=== PATIENT | female | born 1960 | race Caucasian/White ===

== ENCOUNTER 2016-09-21 12:27 | Inpatient (IN) | payer OTHER ==
[2016-09-21] MEDS ORDERED: ONDANSETRON 4 MG/2 ML VIAL IVP ONE (12:47)
--- NOTE | 2016-09-21 12:47 | CPEKG ---
Heart Rate: 56 RR Interval: 1071 P-R Interval: 148 QRSD Interval: 104 QT Interval: 444 QTC Interval: 429 P [place]: 45 QRS [place]: 16 T Wave [place]: 23 EKG Severity - NORMAL ECG - EKG Impression: SINUS RHYTHM Electronically Signed By: Apollo Mann 22-Sep-2016 14:33:58
[2016-09-21] MEDS ORDERED: NS 1,000 ML IV ONE (13:11)
[2016-09-21] MEDS ORDERED: ASPIRIN 81 MG CHEWABLE TAB PO ONE (13:11)
[2016-09-21 13:28] LABS: % IMMATURE GRANULYOCYTES 0.2 % (0.0-1.1); ABSOLUTE IMMATURE GRANULOCYTES 0.01 10^3/uL (0.00-0.10); ADD DIFF? NO; ADD MORPH? NO; ADD SCAN? NO; ATYPICAL LYMPHOCYTE FLAG 10 (0-99); FRAGMENT RBC FLAG 0 (0-99); HEMATOCRIT 39.1 % (38.0-47.0); HEMOGLOBIN 13.3 g/dL (12.6-16.3); LEFT SHIFT FLG 0 (0-99); LIPEMIA HEMOLYSIS FLAG 90 (0-99); MEAN CELL HEMOGLOBIN 31.4 pg (27.9-34.1); MEAN CELL VOLUME 92.2 fL (81.5-99.8); MEAN PLATELET VOLUME 9.4 fL (8.7-11.7); PLATELET CLUMPS FLAG 0 (0-99); PLATELET COUNT 284 10^3/uL (150-400); RED BLOOD CELL COUNT 4.24 10^6/uL (4.18-5.33); RED CELL DISTRIBUTION WIDTH 12.5 % (11.5-15.2)
--- NOTE | 2016-09-21 13:28 | EDPHY ---
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 Patient is on carvedilol which she has been on for over a year and has not change the dosage and has been taking. She states over the past few days her heart rate has been in the 40s on her feet bit and she has been feeling fatigued, occasionally dizzy with near syncope and yesterday and today a feeling of chest pressure, nausea and difficulty breathing. The symptoms are not necessarily exertional. She was seen at [facility] yesterday where her heart rate was in the 50s and they told her to go home and lie down and get some rest but then she noticed her heart rate was in the 40s this morning so she came in. Patient's cardiac risk factors are notable for her hypertension, elevated cholesterol, she has no diabetes, her sister of a heart attack in her 50s, patient quit smoking 1 year ago. REVIEW OF SYSTEMS: As in HPI, and all other systems reviewed and are negative Source: Patient - Personal History Current Tetanus Diphtheria and Acellular Pertussis (TDAP): Yes - Medical/Surgical History Other PMH: HR ablassion -(AVRN)/ GB/HTN - Family History Significant Family History: Heart disease - Social History Smoking Status: Never smoked - Physical Exam Exam: General Appearance: Alert, anxious, vomiting. Eyes: Pupils equal and round no pallor or injection. ENT, Mouth: Mucous membranes moist. Respiratory: Normal, effort, lungs are clear to auscultation. No wheezes, rales or rhonchi. Cardiovascular: Regular rate and rhythm. S1, S2 Gastrointestinal: Abdomen is soft and nontender, no masses, bowel sounds normal. Back: No CVA tenderness, no bony tenderness Neurological: Awake, alert and oriented x 3, no pronator drift, normal gait, no pronator drift Skin: Warm and dry, no rashes. Musculoskeletal: Neck is supple nontender. No deformities. Extremitie:s full range of motion, no edema Psychiatric: Patient has normal affect, there is no agitation. Constitutional: Initial Vital Signs Temperature (C) 36.6 C 09/21/16 12:33 Heart Rate 66 09/21/16 12:33 Respiratory Rate 18 09/21/16 12:33 Blood Pressure 157/86 H 09/21/16 12:33 O2 Sat (%) 99 09/21/16 12:33 O2 Delivery Mode Room Air Allergies/Adverse Reactions: No Known Allergies Allergy (Unverified 09/21/16 12:31) Home Medications: Medication Instructions Recorded Carvedilol 09/21/16 Celabrex 09/21/16 traZODone 09/21/16 Medical Decision Making - Diagnostics Imaging Results: Imaging Impressions Chest X-Ray 09/21/16 13:11 Impression: No acute findings in the chest. ED Course/Re-evaluation: 55-year-old woman with multiple cardiac risk factors presents complaining of bradycardia, dizziness, nausea and intermittent chest pressure and shortness of breath. ECG shows normal sinus rhythm at a rate of 56 with normal axis, normal intervals and no ST segment abnormalities and no evidence of acute ischemia. There is no old EKG available for comparison. Patient was noted to drop into the 40s on the ekg monitor tech. She was given IV Zofran and fluids with some improvement in her symptoms however when she sat up she would feel dizzy again. Chest x-ray showed nothing acute. First troponin was negative. On re- evaluation her nausea return in she was stating that she felt very anxious and became tearful. She was therefore given a dose of IV Haldol for her nausea and anxiety. Although there is no evidence of acute myocardial infarction I was concerned about of myocardia ischemia with the patient's risk factors, bradycardia and symptoms. She will therefore be admitted for further evaluation treatment. I discussed the case with hospitalist tongue presser, Dr. Ly who accepts the patient to [facility]. - Data Points Laboratory Results: Laboratory Results 09/21/16 13:15 09/21/16 13:15 09/21/16 09/21/16 09/21/16 13:20 13:15 13:15 WBC 5.94 10^3/uL 10^3/uL (3.80-9.50) RBC 4.24 10^6/uL 10^6/uL (4.18-5.33) Hgb 13.3 g/dL g/dL (12.6-16.3) Hct 39.1 % % (38.0-47.0) MCV 92.2 fL fL (81.5-99.8) MCH 31.4 pg pg (27.9-34.1) MCHC 34.0 g/dL g/dL (32.4-36.7) RDW 12.5 % % (11.5-15.2) Plt Count 284 10^3/uL 10^3/uL (150-400) MPV 9.4 fL fL (8.7-11.7) Neut % (Auto) 65.3 % % (39.3-74.2) Lymph % (Auto) 24.4 % % (15.0-45.0) Meigs % (Auto) 7.9 % % (4.5-13.0) Eos % (Auto) 1.7 % % (0.6-7.6) Baso % (Auto) 0.5 % % (0.3-1.7) Nucleat RBC Rel Count 0.0 % % (0.0-0.2) Absolute Neuts (auto) 3.88 10^3/uL 10^3/uL (1.70-6.50) Absolute Lymphs (auto) 1.45 10^3/uL 10^3/uL (1.00-3.00) Absolute Monos (auto) 0.47 10^3/uL 10^3/uL (0.30-0.80) Absolute Eos (auto) 0.10 10^3/uL 10^3/uL (0.03-0.40) Absolute Basos (auto) 0.03 10^3/uL 10^3/uL (0.02-0.10) Absolute Nucleated RBC 0.00 10^3/uL 10^3/uL (0-0.01) Immature Gran % 0.2 % % (0.0-1.1) Immature Gran # 0.01 10^3/uL 10^3/uL (0.00-0.10) Sodium 135 mEq/L mEq/L (134-144) Potassium 4.5 mEq/L mEq/L (3.5-5.2) Chloride 101 mEq/L mEq/L (97-110) Carbon Dioxide 23 mEq/l mEq/l (22-31) Anion Gap 11 mEq/L mEq/L (8-16) BUN 15 mg/dL mg/dL (7-23) Creatinine 0.6 mg/dL mg/dL (0.6-1.0) Estimated GFR > 60 Glucose 86 mg/dL mg/dL (70-100) Calcium 9.5 mg/dL mg/dL (8.5-10.4) Magnesium 1.6 mg/dL mg/dL (1.6-2.3) Troponin I < 0.012 ng/mL ng/mL (0-0.034) Urine Opiates Screen NEGATIVE (NEGATIVE) Urine Barbiturates NEGATIVE (NEGATIVE) Ur Phencyclidine Scrn NEGATIVE (NEGATIVE) Ur Amphetamine Screen NEGATIVE (NEGATIVE) U Benzodiazepines Scrn NEGATIVE (NEGATIVE) Urine Cocaine Screen NEGATIVE (NEGATIVE) U Marijuana (THC) Screen NEGATIVE (NEGATIVE) Medications Given: Discontinued Medications Aspirin (Aspirin) 324 mg PO EDNOW ONE Stop: 09/21/16 13:12 Last Admin: 09/21/16 13:28 Dose: 324 mg Haloperidol Lactate (Haldol Injection) 1 mg IVP EDNOW ONE Stop: 09/21/16 15:22 Last Admin: 09/21/16 15:28 Dose: 1 mg Sodium Chloride (Ns) 1,000 mls @ 0 mls/hr IV ONCE ONE; Wide Open PRN Reason: Protocol Stop: 09/21/16 13:12 Last Admin: 09/21/16 13:29 Dose: 1,000 mls Ondansetron HCl (Zofran) 4 mg IVP EDNOW ONE Stop: 09/21/16 12:48 Last Admin: 09/21/16 13:00 Dose: 4 mg Departure - Departure Referrals: NONE *PRIMARY CARE P,. [Primary Care Provider] - As per Instructions
[2016-09-21 13:46] LABS: ANION GAP 11 mEq/L (8-16); CALCIUM 9.5 mg/dL (8.5-10.4); CARBON DIOXIDE 23 mEq/l (22-31); CHLORIDE 101 mEq/L (97-110); CREATININE 0.6 mg/dL (0.6-1.0); GLOMERULAR FILTRATION RATE > 60; GLUCOSE 86 mg/dL (70-100); MAGNESIUM 1.6 mg/dL (1.6-2.3); POTASSIUM 4.5 mEq/L (3.5-5.2); SODIUM 135 mEq/L (134-144)
[2016-09-21 13:59] LABS: TROPONIN I < 0.012 ng/mL (0-0.034)
[2016-09-21] MEDS ORDERED: HALOPERIDOL LACT 5 MG/ML INJ IVP ONE (15:21)
[2016-09-21] MEDS ORDERED: CALCIUM CARBONATE 500 MG TAB PO ONE (15:32)
[2016-09-21] MEDS ORDERED: CALCIUM CARBONATE 500 MG CHEWABLE TAB PO ONE ×3 (15:34→15:35)
[2016-09-21] MEDS ORDERED: ACETAMINOPHEN 325 MG TAB PO PRN (17:57)
[2016-09-21] MEDS ORDERED: ONDANSETRON DISINTEGRATING 4 MG TAB PO PRN (17:57)
[2016-09-21] MEDS ORDERED: MAG HYDROX/AL HYDROX/SIMETH 30 ML UDCUP PO PRN (18:03)
[2016-09-21] MEDS ORDERED: hydrALAZINE 25 MG TAB PO PRN (18:18)
[2016-09-21] MEDS: PROMETHAZINE HCL 25 MG/ML INJ IVP PRN (18:30)
[2016-09-21] MEDS: NS 1,000 ML IV SCH (18:30)
--- NOTE | 2016-09-21 19:09 | GHP ---
[f rep st] HISTORY AND PHYSICAL DATE OF ADMISSION: 09/21/2016 CHIEF COMPLAINT: Nausea, bradycardia. HISTORY OF PRESENT ILLNESS: The patient is a 55-year-old female with history of AVNRT, status post ablation and hypertension in the past, who presented to clinic with a low heart rate. She has been on Coreg since her ablation and has noticed over the past couple days that her Fitbit has shown a heart rate in the 40s. She has felt very fatigued over the last couple weeks with occasional dizziness. She has also had a mild headache intermittently over the last couple weeks. Today, she had chest heaviness in the left side of her chest with no associated radiation, numbness or diaphoresis. She had mild shortness of breath. Says she has had vomiting since yesterday (puking bile). She attributes this to a new diet that she has been eating which is taking out fats , meats. She was seen at [facility] yesterday, heart rate in the 50s and they told her to go home and lie down but she notes today heart rate was in the 40s, thus she returned to [facility]. She denies diarrhea. No fevers, chills or sweats. No cough. No lower extremity edema. No recent travel. No herbal supplements. Denies drugs, tobacco. Is an alcoholic. She says her last drink was a couple weeks ago. It was difficult to get a clear history from patient, as was tangential, likely secondary from Haldol and Benadryl she received over at [facility]. She says she walks 20,000 steps a day with her job and does not experience chest pain or shortness of breath with this usual activity. REVIEW OF SYSTEMS: I completed a 10-point review of systems, negative except as noted. PAST MEDICAL HISTORY: AVNRT, status post ablation in 2014. PAST SURGICAL HISTORY: Cholecystectomy. FAMILY HISTORY: Sister of heart failure. SOCIAL HISTORY: Lives in [place] alone. No illicits or tobacco. Prior heavy alcohol use. 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 Walks 20,000 steps a day. ALLERGIES: Celecoxib, trazodone, Coreg 6.25 mg b.i.d. ALLERGIES: No known drug allergies. PHYSICAL EXAM: VITAL SIGNS: Temperature 36.9, blood pressure 174/104, heart rate 50s to 60s, respirations 16, 98% on room air. GENERAL: Patient is lying in bed, somnolent but easily arousable to voice. HEENT: PERRLA, EOMI. Dry mucous membranes. CV: Regular rate and rhythm. No murmurs, gallops, rubs. No lower extremity edema. LUNGS: Clear to auscultation. ABDOMEN: Soft, nontender, nondistended. Positive bowel sounds. : No suprapubic tenderness. MUSCULOSKELETAL: 5/5 upper and lower extremity strength. NEURO: 2 through 12 intact. No focal deficits. Normal sensation to touch. PSYCH: Alert and oriented x3, but very slow to answer. Difficult to keep on point when asking questions. LABS: WBC is 5, hemoglobin 13, hematocrit 39, platelets 284. Sodium 135, potassium 4.5, chloride 101, carbon dioxide 23, BUN 15, creatinine 0.6, mag 1.6. Troponin less than 0.012. U-tox was negative. EKG, personally reviewed by me, for sinus rhythm, bradycardia, heart rate in the 50s. Less <1mm depression in V4-5 Chest x-ray, personally reviewed, granulomas. No effusion or opacity. ASSESSMENT AND PLAN: 1. Dizziness, fatigue: Suspect secondary to bradycardia. HR low as 40s per her Fitbit and at [facility]. Initial troponin. Min ST depression V4-6. Will monitor in the PCU on telemetry and repeat both of these. Hold Coreg. Check a TSH. Will hydrate with fluids. She is not on any other atrioventricular jennifer blocking drugs. 2. Accelerated hypertension: Blood pressure high today. May be a situation with excessive nausea and vomiting. Will monitor, p.r.n. hydralazine. Norvasc in morning 3. Atypical chest pain: chest pressure today, but difficult to get details during exam. Denies family history of CAD. Blood pressure elevated today that may have contributed. Cycle troponins and EKG. If negative, would be reasonable to stress as an outpatient when BP better controlled. Will check an A1c and lipids. 4. Nausea and vomiting: Unclear etiology. Could be an anginal equivalent versus a gastroenteritis. Question of patient drinking more than stated. Will hydrate and p.r.n. IV antiemetics. 5. Diet: Regular. 6. Deep venous thrombosis prophylaxis. Low risk, ambulatory. 7. Disposition: Patient warrants observation admission given acute chest pressure and bradycardia requiring telemetry and serial troponins. /[id number]/MODL MTDD
--- NOTE | 2016-09-21 19:16 | CPEKG ---
Heart Rate: 52 RR Interval: 1154 P-R Interval: 140 QRSD Interval: 110 QT Interval: 468 QTC Interval: 436 P [place]: 69 QRS [place]: 6 T Wave [place]: 21 EKG Severity - ABNORMAL ECG - EKG Impression: SINUS RHYTHM EKG Impression: NONSPECIFIC INTRAVENTRICULAR CONDUCTION DELAY Electronically Signed By: Apollo Mann 22-Sep-2016 14:33:38
[2016-09-21 20:41] LABS: TROPONIN I < 0.012 ng/mL (0-0.034)
[2016-09-21] MEDS: ONDANSETRON 4 MG/2 ML VIAL IVP PRN (20:58)
[2016-09-21] MEDS: CALCIUM CARBONATE 500 MG CHEWABLE TAB PO SCH (21:00)
[2016-09-21 21:17] LABS: COLOR YELLOW; LEUKOCYTE ESTERASE,URINE NEGATIVE (NEGATIVE); NITRITE,URINE NEGATIVE (NEGATIVE)
[2016-09-21 21:30] LABS: MUCUS TRACE /lpf (NONE-1+)
[2016-09-22] MEDS: PROMETHAZINE HCL 25 MG/ML INJ IVP PRN ×2 (05:08→22:29)
[2016-09-22 07:55] LABS: HEMATOCRIT 38.3 % (38.0-47.0); MEAN CELL HEMOGLOBIN CONCENTR. 33.9 g/dL (32.4-36.7); MEAN CELL VOLUME 91.2 fL (81.5-99.8); RED BLOOD CELL COUNT 4.2 10^6/uL (4.18-5.33); RED CELL DISTRIBUTION WIDTH 11.9 % (11.5-15.2)
[2016-09-22 08:05] LABS: ANION GAP 10 mEq/L (8-16); CALCIUM 9.5 mg/dL (8.5-10.4); CARBON DIOXIDE 19 mEq/l (22-31); CHLORIDE 102 mEq/L (97-110); CHOLESTEROL 195 mg/dL (140-220); CHOLESTEROL/HDL RATIO 2.91 RATIO (1.00-4.44); CREATININE 0.5 mg/dL (0.6-1.0); GLOMERULAR FILTRATION RATE > 60; GLUCOSE 112 mg/dL (70-100); HIGH DENSITY LIPOPROTEIN 67 mg/dL (40-85); LDL/HDL RATIO 1.76 RATIO (1.00-3.22); LOW DENSITY LIPOPROTEIN 118 mg/dL (80-100); NON-HIGH DENSITY LIPOPROTEIN 128 mg/dL (90-129); POTASSIUM 3.9 mEq/L (3.5-5.2); SODIUM 131 mEq/L (134-144); TRIGLYCERIDE 54 mg/dL (35-135); VERY LOW DENSITY LIPOPROTEINS 10 mg/dL (8-25)
[2016-09-22] MEDS: CALCIUM CARBONATE 500 MG CHEWABLE TAB PO SCH ×3 (09:05→19:21)
[2016-09-22] MEDS: amLODIPine BESYLATE 5 MG TAB PO SCH (09:05)
[2016-09-22] MEDS ORDERED: traZODone 50 MG TAB PO PRN (09:24)
--- NOTE | 2016-09-22 09:44 | HOSPPROG ---
Hospitalist Progress Note Assessment/Plan: # intractable N/V - no MJ use; no sick contacts - treat symptomatically - severe agitation with haldol at [facility] - avoid - start protonix # hypoNa - check Stevo and osms - cont IVF for now, but noted that she got 1/5L NS overnight # bradycardia - unclear if vagal in setting of GI issues - hold coreg, follow on tele # dizziness - d/t ortiz vs hypovolemia; follow # CP - consider treadmill ECG tomorrow - would evaluate ischemia and ability to raise heart rate # hx AVNRT s/p ablation # agitation/anxiety - denies hx bipolar, etc # dispo - inapatient; needs > 2 midnights as is not tolerating PO today Subjective: still vomiting Objective: Vital Signs Temp Pulse Resp BP Pulse Ox 36.6 C 60 20 149/86 H 98 09/22/16 04:00 09/22/16 08:30 09/22/16 08:30 09/22/16 08:30 09/22/16 08:30 Laboratory Results 09/22/16 07:38 09/22/16 07:38 09/21/16 09/22/16 09/23/16 05:59 05:59 05:59 Intake Total 2400 Output Total 1745 100 Balance 655 -100 - Physical Exam Constitutional: uncomfortable Cardiovascular: regular rate and rhythym, no murmur, rub, or gallop Respiratory: no respiratory distress, no rales or rhonchi, clear to auscultation Gastrointestinal: normoactive bowel sounds, soft, non-tender abdomen, no palpable masses ICD10 Worksheet Patient Problems: Problems Problem Status Onset Nausea Acute
[2016-09-22] MEDS: PANTOPRAZOLE SODIUM 40 MG in NS 100 ML IV SCH ×2 (10:11→19:21)
[2016-09-22 12:16] LABS: HEMOGLOBIN A1C 5.2 % (4.0-6.0)
[2016-09-22] MEDS: ONDANSETRON 4 MG/2 ML VIAL IVP PRN ×2 (13:17→19:21)
[2016-09-22] MEDS: NS 1,000 ML IV SCH (15:51)
[2016-09-23 05:28] LABS: ANION GAP 12 mEq/L (8-16); CALCIUM 9.3 mg/dL (8.5-10.4); CARBON DIOXIDE 20 mEq/l (22-31); CHLORIDE 105 mEq/L (97-110); CREATININE 0.7 mg/dL (0.6-1.0); GLOMERULAR FILTRATION RATE > 60; GLUCOSE 100 mg/dL (70-100); POTASSIUM 3.9 mEq/L (3.5-5.2); SODIUM 137 mEq/L (134-144)
[2016-09-23] MEDS: PROMETHAZINE HCL 25 MG/ML INJ IVP PRN (09:42)
[2016-09-23] MEDS: amLODIPine BESYLATE 5 MG TAB PO SCH (09:42)
[2016-09-23] MEDS: CALCIUM CARBONATE 500 MG CHEWABLE TAB PO SCH (09:42)
[2016-09-23] MEDS: PANTOPRAZOLE SODIUM 40 MG in NS 100 ML IV SCH (09:43)
[2016-09-23 11:36] VITALS: RESP 13; TEMP 99.1; O2SAT 94
[2016-09-23 12:51] VITALS: BP 96/62; PULSE 57
--- NOTE | 2016-09-23 17:24 | PDDCSUM ---
Discharge Summary Discharge Summary: DISCHARGE SUMMARY FOLLOW-UP ITEMS: Outpatient Lexiscan stress test DATE OF ADMISSION: 09/21/2016 DATE OF DISCHARGE: 09/23/2016 DISCHARGE DIAGNOSES: 1. Intractable nausea and vomiting 2. Acute hyponatremia 3. Symptomatic bradycardia 4. Acute chest pain 5. History of AVNRT 6. Acute metabolic acidosis CONSULTATIONS: None PROCEDURES / IMAGING: None CHIEF COMPLAINT: Acute nausea and vomiting SUBJECTIVE: Patient is feeling well at time of discharge, her nausea is well controlled on oral antiemetics, she is tolerating oral intake she is urinating well, she is not having any chest pain PHYSICAL EXAM ON DISCHARGE: Systolic blood pressure is 102, heart rate is 56, afebrile, satting well on room air, alert awake oriented x3 no apparent distress, conversation is tangential and scattered but redirectable, no lower extremity edema, abdomen is soft nontender nondistended no masses palpated, heart rhythm is regular, increases into the 70s with distraction and excitement, lungs are clear to auscultation bilaterally LABS ON DISCHARGE: LDL 118, hemoglobin A1c 5.2%, creatinine 0.7, serum bicarb 20 HOSPITAL COURSE BY PROBLEM: 1. Acute intractable nausea and vomiting. Unclear etiology, potentially secondary to gastroenteritis versus recent dietary changes and resultant GI distress and or functional abdominal pathology. Her abdomen was quite benign upon my evaluation and she was tolerating oral intake. She required inpatient hospitalization and extended hospitalization secondary to inability to tolerate oral intake on 09/22. She received IV fluids and supportive care during this hospitalization and I chose to discharge her with oral Protonix given the possibility of irritant gastritis. She also received as needed Zofran at time of discharge. 2. Acute hyponatremia. Most likely secondary to a combination of hypovolemia as well as increased free water intake, counseled the patient extensively regarding drinking fluids with electrolyte and solid content, and after receiving IV normal saline during this hospitalization, her serum sodium level stabilized. 3. Acute metabolic acidosis. Most likely secondary to vomiting and upper GI losses, after receiving IV normal saline and this has normalized. 4. Symptomatic bradycardia. Patient has had symptomatic bradycardia with lightheadedness while on 6.25 mg of Coreg as an outpatient for history of AVNRT. Given that she is status post ablation for AVNRT and has been told by her previous wireless team member in [place] that she may only require short- term management and the medication has been continued for over 2 years, think it is safe to discontinue the Coreg and follow up with [facility] cardiology clinic. Despite stopping the Coreg she did demonstrate some ongoing sinus bradycardia but she maintained a good systolic blood pressure and was not orthostatic at time of discharge. 5. Acute chest pain. Most likely secondary to her above-mentioned nausea and vomiting with likely esophageal irritation, she is low risk for obstructive coronary disease with no history of known coronary disease and no typical symptoms consistent with angina. Initially an exercise stress test was considered but given patient's recent rehab from ankle injury, she is unable to run on a treadmill. Consequently, she should have non emergent Lexiscan test performed and she will contact [facility] to arrange this. 6. Suspected hypertension. The patient has been on carvedilol for 2 years and upon discontinuation, systolic blood pressure fluctuated widely, increasing to as much as 180. It is unclear if these rapid rise in blood pressure are related to any of her after mentioned symptoms, but the patient was initiated on amlodipine 5 mg daily during this hospitalization. While on this medication, her systolic blood pressure went as low as the high 90s, and I reduced the dosage to 2.5 mg daily at discharge. She should follow up with [facility] and have blood pressure recheck to ensure that she is maintaining safe blood pressure range. DISCHARGE MEDICATIONS: Please see official discharge medication reconciliation sheet in chart , Zofran as needed, Protonix 40 mg daily, discontinued Coreg, initiated low-dose amlodipine 2.5 mg daily. DISCHARGE INSTRUCTIONS: Please follow up with [facility] to schedule Lexiscan stress as well as establish care with Dr. Kimball. TIME SPENT: Greater than 30 minutes were spent on direct patient care, as well as discharge planning and preparation.
== END 2016-09-23 15:22 | disposition home or self-care (01) | DRG 309 ==
LOC: CED 12:27 → CEDHOLD 15:31 → F2W 17:40 → OBSVTOIN 09-22 09:38
PROVIDERS: ADMIT Internal Medicine; ATTEND Internal Medicine
DX: R00.1 Bradycardia, unspecified (principal); E87.1 Hypo-osmolality and hyponatremia; E87.2 Acidosis; R11.2 Nausea with vomiting, unspecified; R07.89 Other chest pain; I10 Essential (primary) hypertension; R45.1 Restlessness and agitation; T43.4X5A Adverse effect of butyrophenone and thiothixene neuroleptics, initial encounter; F41.1 Generalized anxiety disorder; Z87.891 Personal history of nicotine dependence; Z82.49 Family history of ischemic heart disease and other diseases of the circulatory system
CPT/HCPCS: 71020-PO; 80048-PO; 80307-PO; 83735-PO; 84484-PO; 85025-PO; G0378; J1200; J2405; J2550

== ENCOUNTER 2016-09-26 10:35 | Emergency (ER) | payer OTHER ==
[2016-09-26 10:41] VITALS: TEMP 97.7
[2016-09-26] MEDS ORDERED: ONDANSETRON 4 MG/2 ML VIAL IVP ONE (10:55)
[2016-09-26] MEDS ORDERED: NS 1,000 ML IV ONE (10:55)
[2016-09-26] MEDS ORDERED: PANTOPRAZOLE SODIUM 40 MG VIAL IVP ONE (10:56)
[2016-09-26 11:00] LABS: % IMMATURE GRANULYOCYTES 0.4 % (0.0-1.1); ABSOLUTE IMMATURE GRANULOCYTES 0.04 10^3/uL (0.00-0.10); ADD DIFF? NO; ADD MORPH? NO; ADD SCAN? NO; ATYPICAL LYMPHOCYTE FLAG 0 (0-99); FRAGMENT RBC FLAG 0 (0-99); HEMATOCRIT 42.2 % (38.0-47.0); HEMOGLOBIN 14.5 g/dL (12.6-16.3); LEFT SHIFT FLG 0 (0-99); LIPEMIA HEMOLYSIS FLAG 90 (0-99); MEAN CELL HEMOGLOBIN CONCENTR. 34.4 g/dL (32.4-36.7); MEAN CELL VOLUME 90.2 fL (81.5-99.8); MEAN PLATELET VOLUME 9.3 fL (8.7-11.7); PLATELET CLUMPS FLAG 0 (0-99); PLATELET COUNT 410 10^3/uL (150-400); RED BLOOD CELL COUNT 4.68 10^6/uL (4.18-5.33); RED CELL DISTRIBUTION WIDTH 12.5 % (11.5-15.2)
--- NOTE | 2016-09-26 11:01 | CPEKG ---
Heart Rate: 72 RR Interval: 833 P-R Interval: 101 QRSD Interval: 98 QT Interval: 440 QTC Interval: 482 P [place]: 4 QRS [place]: 7 T Wave [place]: 21 EKG Severity - ABNORMAL ECG - EKG Impression: SINUS RHYTHM EKG Impression: SHORT [place] INTERVAL, ACCELERATED AV CONDUCTION EKG Impression: POSTERIOR INFARCT Electronically Signed By: Osmany Arias 26-Sep-2016 15:47:22
[2016-09-26 11:11] LABS: ALANINE AMINOTRANSFERASE 27 IU/L (9-52); ALBUMIN 5.1 g/dL (3.5-5.0); ALKALINE PHOSPHATASE 86 IU/L (38-126); ANION GAP 20 mEq/L (8-16); ASPARTATE AMINOTRANSFERASE 23 IU/L (14-46); BILIRUBIN,TOTAL 0.8 mg/dL (0.1-1.4); BILIRUBIN-CONJUGATED 0.4 mg/dL (0.0-0.5); BILIRUBIN-UNCONJUGATED 0.4 mg/dL (0.0-1.1); CALCIUM 10.1 mg/dL (8.5-10.4); CARBON DIOXIDE 17 mEq/l (22-31); CHLORIDE 103 mEq/L (97-110); CREATININE 0.6 mg/dL (0.6-1.0); GLOMERULAR FILTRATION RATE > 60; GLUCOSE 147 mg/dL (70-100); POTASSIUM 3.6 mEq/L (3.5-5.2); SODIUM 140 mEq/L (134-144); TOTAL PROTEIN 8.1 g/dL (6.3-8.2)
[2016-09-26 11:23] LABS: TROPONIN I < 0.012 ng/mL (0-0.034)
--- NOTE | 2016-09-26 11:33 | EDPHY ---
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 This started last night after a meal. It is been constant duration. Moderate to severe. Intractable vomiting that is described as bilious. No bright red blood per vomit. No constipation but she does have some diarrhea. No bloody stools. The abdominal pain is severe in the epigastrium. Radiates up into the chest at times. There is no trauma or injury. No fever chills. No shortness of breath. Recent admission here with diagnosis of gastritis. She has seen a manager food safety in the past but not recently here. No other associated complaints or modifying factors. REVIEW OF SYSTEMS: Ten systems reviewed and are negative unless otherwise noted in the HPI PAST MEDICAL HISTORY: As reviewed SOCIAL HISTORY: Nonsmoker. FAMILY HISTORY: Noncontributory EXAMINATION General Appearance: Alert, no distress, actively vomiting Head: normocephalic, atraumatic Eyes: Pupils equal and round, no conjunctival pallor or injection ENT, Mouth: Mucous membranes moist. Airway widely patent. Neck: Normal inspection, supple, non-tender Respiratory: Lungs are clear to auscultation. No wheezing, rhonchi or crackles Cardiovascular: Regular rate and rhythm. No murmur. Pulses intact distally. Gastrointestinal: Abdomen is soft. Mild epigastric tenderness. No distention. No tympany. No rigidity. No guarding. No CVA tenderness. Bowel sounds are active in all quadrants. Neurological: A&O, nonfocal, normal gait Skin: Warm and dry, no rash. No petechiae or purpura Extremities: Nontender, no pedal edema Psychiatric: Mood and affect normal DIFFERENTIAL DIAGNOSES: Including but not limited to gastritis, duodenitis, GERD, enteritis, colitis, ACS, pericarditis, hepatitis MDM: 11:10 a.m. Epigastric pain with nausea and vomiting that is intractable over the past 12 hours. She is actively vomiting at time of examination. IV fluid, Protonix and antiemetics have been ordered. Vital signs stable. Laboratory studies are pending. 12:55 p.m. Notified by RN that the patient is actively vomiting again. I have ordered IV Haldol and Benadryl. I will reassess. 1:05 p.m. I have re-evaluated the patient. She continues to feel nauseated but is no longer vomiting. Her pain is improved. Vital signs remained stable. 2:20 p.m. I have re-evaluated the patient. She is resting comfortably at this time. No vomiting. Tolerating intake by mouth. No fever chills. No pain at this time. She wants to be discharged home. I will discharge her home with nausea medications, ED precautions and instructions to contact her primary care physician tomorrow. She is comfortable this plan and discharged home stable condition SUPERVISION: This patient was independently evaluated without direct examination by the attending physician. Case was discussed with attending physician. (Royce Macdonald ) Constitutional: Initial Vital Signs Temperature (C) 36.5 C 09/26/16 10:39 Heart Rate 95 09/26/16 10:39 Respiratory Rate 24 H 09/26/16 10:39 Blood Pressure 119/70 09/26/16 10:39 O2 Sat (%) 98 09/26/16 10:39 O2 Delivery Mode Room Air Allergies/Adverse Reactions: No Known Allergies Allergy (Unverified 09/21/16 12:31) Home Medications: Medication Instructions Recorded celeCOXIB [Celecoxib] 100 mg PO BID PRN 09/21/16 traZODone [traZODONE 50MG (*)] 50 mg PO HS PRN 09/21/16 Ondansetron Odt [Zofran Odt 4 mg 4 mg PO Q4HRS PRN #40 tab 09/23/16 (*)] Pantoprazole Sodium 40 mg PO DAILY #30 tablet. 09/23/16 amLODIPine BESYLATE [Norvasc 2.5 2.5 mg PO DAILY #30 tab 09/23/16 mg (*)] celeCOXIB [CeleBREX] 100 mg PO BID PRN #0 cap 09/23/16 Ondansetron Odt [Zofran Odt 4 mg 4 mg PO Q6 PRN #12 tab 09/26/16 (*)] Promethazine HCl [Phenergan 25mg 25 mg PO Q8 PRN #20 tab 09/26/16 (*)] Sucralfate [Carafate Suspension] 5 - 10 ml PO TID PRN #240 ml 09/26/16 Medical Decision Making - Diagnostics Imaging Results: Imaging Impressions Chest X-Ray 09/26/16 11:29 Impression: Chest negative for acute abnormality. ED Course/Re-evaluation: I did not see this patient while she was in the emergency department. However her care was discussed with the PA while the patient was in the department. I agree with treatment plan and management (Osmany Arias) - Data Points Laboratory Results: Laboratory Results 09/26/16 10:55 09/26/16 10:55 09/26/16 09/26/16 10:55 10:55 WBC 10.23 10^3/uL H 10^3/uL (3.80-9.50) RBC 4.68 10^6/uL 10^6/uL (4.18-5.33) Hgb 14.5 g/dL g/dL (12.6-16.3) Hct 42.2 % % (38.0-47.0) MCV 90.2 fL fL (81.5-99.8) MCH 31.0 pg pg (27.9-34.1) MCHC 34.4 g/dL g/dL (32.4-36.7) RDW 12.5 % % (11.5-15.2) Plt Count 410 10^3/uL H 10^3/uL (150-400) MPV 9.3 fL fL (8.7-11.7) Neut % (Auto) 85.6 % H % (39.3-74.2) Lymph % (Auto) 11.1 % L % (15.0-45.0) [place] % (Auto) 2.6 % L % (4.5-13.0) Eos % (Auto) 0.0 % L % (0.6-7.6) Baso % (Auto) 0.3 % % (0.3-1.7) Nucleat RBC Rel Count 0.0 % % (0.0-0.2) Absolute Neuts (auto) 8.75 10^3/uL H 10^3/uL (1.70-6.50) Absolute Lymphs (auto) 1.14 10^3/uL 10^3/uL (1.00-3.00) Absolute Monos (auto) 0.27 10^3/uL L 10^3/uL (0.30-0.80) Absolute Eos (auto) 0.00 10^3/uL L 10^3/uL (0.03-0.40) Absolute Basos (auto) 0.03 10^3/uL 10^3/uL (0.02-0.10) Absolute Nucleated RBC 0.00 10^3/uL 10^3/uL (0-0.01) Immature Gran % 0.4 % % (0.0-1.1) Immature Gran # 0.04 10^3/uL 10^3/uL (0.00-0.10) Sodium 140 mEq/L mEq/L (134-144) Potassium 3.6 mEq/L mEq/L (3.5-5.2) Chloride 103 mEq/L mEq/L (97-110) Carbon Dioxide 17 mEq/l L mEq/l (22-31) Anion Gap 20 mEq/L H mEq/L (8-16) BUN 13 mg/dL mg/dL (7-23) Creatinine 0.6 mg/dL mg/dL (0.6-1.0) Estimated GFR > 60 Glucose 147 mg/dL H mg/dL (70-100) Calcium 10.1 mg/dL mg/dL (8.5-10.4) Total Bilirubin 0.8 mg/dL mg/dL (0.1-1.4) Conjugated Bilirubin 0.4 mg/dL mg/dL (0.0-0.5) Unconjugated Bilirubin 0.4 mg/dL mg/dL (0.0-1.1) AST 23 IU/L IU/L (14-46) ALT 27 IU/L IU/L (9-52) Alkaline Phosphatase 86 IU/L IU/L (38-126) Troponin I < 0.012 ng/mL ng/mL (0-0.034) Total Protein 8.1 g/dL g/dL (6.3-8.2) Albumin 5.1 g/dL H g/dL (3.5-5.0) Lipase 99.0 IU/L IU/L (23-300) Medications Given: Discontinued Medications Diphenhydramine HCl (Benadryl Injection) 25 mg IVP EDNOW ONE Stop: 09/26/16 12:55 Last Admin: 09/26/16 12:57 Dose: 25 mg Haloperidol Lactate (Haldol Injection) 2.5 mg IVP EDNOW ONE Stop: 09/26/16 12:55 Last Admin: 09/26/16 12:56 Dose: 2.5 mg Sodium Chloride (Ns) 1,000 mls @ 0 mls/hr IV EDNOW ONE; Wide Open PRN Reason: Protocol Stop: 09/26/16 10:56 Last Admin: 09/26/16 11:04 Dose: 1,000 mls Ondansetron HCl (Zofran) 4 mg IVP EDNOW ONE Stop: 09/26/16 10:56 Last Admin: 09/26/16 11:04 Dose: 4 mg Pantoprazole Sodium (Protonix) 40 mg IVP EDNOW ONE Stop: 09/26/16 10:57 Last Admin: 09/26/16 11:04 Dose: 40 mg Departure - Departure Disposition: Home, Routine, Self-Care Clinical Impression: Epigastric pain Nausea & vomiting Qualifiers: Vomiting type: unspecified Vomiting Intractability: non-intractable Qualified Code(s): R11.2 - Nausea with vomiting, unspecified Gastritis Qualifiers: Gastritis type: unspecified gastritis Chronicity: acute Gastritis bleeding: without bleeding Qualified Code(s): K29.00 - Acute gastritis without bleeding Condition: Good Instructions: Gastritis (ED), Acute Nausea and Vomiting (ED), Abdominal Pain ( ED) Additional Instructions: 1. Contact primary care physician tomorrow 2. Return to ER for any chest pain 3. Return here for intractable vomiting or any fever Referrals: NONE *PRIMARY CARE P,. [Primary Care Provider] - As per Instructions Lucius Whitehead MD [Medical Doctor] - As per Instructions Stand Alone Forms: Work Excuse Prescriptions: Ondansetron Odt [Zofran Odt 4 mg (*)] 4 mg PO Q6 PRN #12 tab PRN Reason: Nausea/Vomiting, Use 1st Promethazine HCl [Phenergan 25mg (*)] 25 mg PO Q8 PRN #20 tab PRN Reason: Nausea/Vomiting, Use 1st Sucralfate [Carafate Suspension] 5 - 10 ml PO TID PRN #240 ml PRN Reason: Pain, Mild
[2016-09-26] MEDS ORDERED: HALOPERIDOL LACT 5 MG/ML INJ ONE (12:53)
[2016-09-26] MEDS ORDERED: HALOPERIDOL LACT 5 MG/ML INJ IVP ONE (12:54)
[2016-09-26 14:45] VITALS: BP 113/77; PULSE 57; RESP 16; O2SAT 96
== END 2016-09-26 14:45 | disposition home or self-care (01) ==
DX: K29.00 Acute gastritis without bleeding (principal); I10 Essential (primary) hypertension; E86.9 Volume depletion, unspecified; Z90.49 Acquired absence of other specified parts of digestive tract
CPT/HCPCS: 96374; J1200; J2405

== ENCOUNTER 2016-09-30 12:03 | Observation (INO) | payer OTHER ==
[2016-09-30] MEDS ORDERED: ONDANSETRON 4 MG/2 ML VIAL IVP ONE (12:33)
[2016-09-30] MEDS ORDERED: NS 1,000 ML IV ONE (12:33)
[2016-09-30] MEDS ORDERED: METOCLOPRAMIDE 10 MG/2 ML VIAL IVP ONE (12:33)
[2016-09-30] MEDS ORDERED: PANTOPRAZOLE SODIUM 40 MG in NS 100 ML IV ONE (12:37)
--- NOTE | 2016-09-30 12:39 | EDPHY ---
H & P Stated Complaint: abdominal pain, n/v HPI/ROS: CHIEF COMPLAINT: Abdominal pain, nausea of on HISTORY OF PRESENT ILLNESS: Patient complains of ongoing epigastric abdominal pain. This has been present for nearly 14 days. I re-evaluated her several days ago here in the emergency department. At that time she improved and wants to go home. She has done so and Protonix and nausea medicines. She her pain continues to worsen. It is primarily epigastric. Intractable vomiting over the past 24 hours. Not tolerating liquids or solids. Subjectively febrile. It is severe. Worse with any palpation or movement. No alleviating factors. No bloody stools or emesis. No constipation. Some diarrhea. No other associated complaints or modifying factors. REVIEW OF SYSTEMS: Ten systems reviewed and are negative unless otherwise noted in the HPI PAST MEDICAL HISTORY: Reviewed, unchanged from most recent visit SOCIAL HISTORY: Reviewed FAMILY HISTORY: Noncontributory EXAMINATION General Appearance: Alert, no distress, actively vomiting Head: normocephalic, atraumatic Eyes: Pupils equal and round, no conjunctival pallor or injection ENT, Mouth: Mucous membranes moist. Airway patent Neck: Normal inspection, supple, non-tender Respiratory: Lungs are clear to auscultation. No wheezing, rhonchi or crackles Cardiovascular: Regular rate and rhythm. No murmur Gastrointestinal: Abdomen is soft and nondistended. There is tenderness in the epigastrium. Guarding in the epigastrium. No rigidity. No tympany. Bowel sounds present all 4 quadrants Back: non-tender, no bony abnormalities Neurological: A&O, nonfocal, normal gait Skin: Warm and dry, no rash Extremities: Nontender, no pedal edema Psychiatric: Mood and affect normal DIFFERENTIAL DIAGNOSES: Including but not limited to duodenitis, perfect duodenal ulcer, peptic ulcer, gastritis, colitis, pancreatitis, hepatitis MDM: 12:30 p.m. Ongoing epigastric abdominal pain with nausea vomiting. I have recently evaluated this patient in the emergency department and familiar with her. She does appear to be vomiting more forcefully than previous examination. No CT scan had previously been ordered as she resolved. At this point I have ordered CT scan of the abdomen and pelvis, IV fluid, antiemetic and Protonix. 1:30 p.m. Laboratory studies are unremarkable. No significant abnormalities. She remains nauseated with epigastric pain. No acute distress. 1:50 p.m. Case discussed with Dr. Cadena, radiologist. CT scan does suggest gastritis without any evidence of perforation or pneumoperitoneum. I re- evaluated the patient. She still active vomiting and significant amount of pain. She is also very tearful and upset. She is asking to shower immediately. I will proceed with admission to the hospital. I have also ordered Ativan for anxiety component. 2:10 p.m. I discussed the case with Dr. Vora. Patient has been admitted to her service in stable condition. SUPERVISION: This patient was independently evaluated without direct examination by the attending physician. Case was discussed with attending physician. 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)/choleycystectomy/HTN - Social History Smoking Status: Never smoked Constitutional: Initial Vital Signs Temperature (C) 98.2 F 09/30/16 12:18 Heart Rate 66 09/30/16 12:18 Respiratory Rate 16 09/30/16 12:18 Blood Pressure 175/105 H 09/30/16 12:18 O2 Sat (%) 99 09/30/16 12:18 O2 Delivery Mode Room Air Allergies/Adverse Reactions: No Known Allergies Allergy (Unverified 09/21/16 12:31) Home Medications: Medication Instructions Recorded celeCOXIB [Celecoxib] 100 mg PO BID PRN 09/21/16 traZODone [traZODONE 50MG (*)] 50 mg PO HS PRN 09/21/16 Ondansetron Odt [Zofran Odt 4 mg 4 mg PO Q4HRS PRN #40 tab 09/23/16 (*)] Pantoprazole Sodium 40 mg PO DAILY #30 tablet. 09/23/16 amLODIPine BESYLATE [Norvasc 2.5 2.5 mg PO DAILY #30 tab 09/23/16 mg (*)] celeCOXIB [CeleBREX] 100 mg PO BID PRN #0 cap 07/27/17 Ondansetron Odt [Zofran Odt 4 mg 4 mg PO Q6 PRN #12 tab 09/26/16 (*)] Promethazine HCl [Phenergan 25mg 25 mg PO Q8 PRN #20 tab 09/26/16 (*)] Sucralfate [Carafate Suspension] 5 - 10 ml PO TID PRN #240 ml 09/26/16 Medical Decision Making - Diagnostics Imaging Results: Imaging Impressions Abdomen CT 09/30/16 12:33 Impression: 1. Mild gastric wall thickening, suspicious for gastritis. 2. Moderate stool in the proximal colon. 3. Tiny hepatic and renal hypodensities too small to catheterize, statistically likely to represent cysts. 4. Additional findings as above. Findings discussed with Royce Macdonald 09/30/2016 at 13:49. - Data Points Laboratory Results: Laboratory Results 09/30/16 11:55 09/30/16 11:55 09/30/16 09/30/16 09/30/16 13:10 12:38 11:55 WBC RBC Hgb POC Hgb 13.6 gm/dL gm/dL (12.6-16.3) Hct POC Hct 40 % % (38-47) MCV MCH MCHC RDW Plt Count MPV Neut % (Auto) Lymph % (Auto) [place] % (Auto) Eos % (Auto) Baso % (Auto) Nucleat RBC Rel Count Absolute Neuts (auto) Absolute Lymphs (auto) Absolute Monos (auto) Absolute Eos (auto) Absolute Basos (auto) Absolute Nucleated RBC Immature Gran % Immature Gran # PT 11.9 SEC L SEC (12.0-15.0) INR 0.89 (0.83-1.16) APTT 26.9 SEC SEC (23.0-38.0) POC Sodium 141 mEq/L mEq/L (134-144) Sodium POC Potassium 3.9 mEq/L mEq/L (3.3-5.0) Potassium POC Chloride 106 mEq/L mEq/L (97-110) Chloride Carbon Dioxide Anion Gap POC BUN 8 mg/dL mg/dL (7-23) BUN Creatinine POC Creatinine 0.7 mg/dL mg/dL (0.6-1.0) Estimated GFR Glucose POC Glucose 101 mg/dL H mg/dL (70-100) Calcium Total Bilirubin Conjugated Bilirubin Unconjugated Bilirubin AST ALT Alkaline Phosphatase Total Protein Albumin Lipase Urine Color PALE YELLOW Urine Appearance CLEAR Urine pH 8.0 H (5.0-7.5) Ur Specific [place] 1.010 (1.002-1.030) Urine Protein NEGATIVE (NEGATIVE) Urine Ketones NEGATIVE (NEGATIVE) Urine Blood NEGATIVE (NEGATIVE) Urine Nitrate NEGATIVE (NEGATIVE) Urine Bilirubin NEGATIVE (NEGATIVE) Urine Urobilinogen NEGATIVE EU EU (0.2-1.0) Ur Leukocyte Esterase NEGATIVE (NEGATIVE) Urine RBC NONE SEEN /hpf /hpf (0-3) Urine WBC NONE SEEN /hpf /hpf (0-3) Ur Epithelial Cells TRACE /lpf /lpf (NONE-1+) Urine Glucose NEGATIVE (NEGATIVE) 09/30/16 09/30/16 11:55 11:55 WBC 8.99 10^3/uL 10^3/uL (3.80-9.50) RBC 4.49 10^6/uL 10^6/uL (4.18-5.33) Hgb 14.1 g/dL g/dL (12.6-16.3) POC Hgb Hct 41.9 % % (38.0-47.0) POC Hct MCV 93.3 fL fL (81.5-99.8) MCH 31.4 pg pg (27.9-34.1) MCHC 33.7 g/dL g/dL (32.4-36.7) RDW 12.7 % % (11.5-15.2) Plt Count 364 10^3/uL 10^3/uL (150-400) MPV 9.5 fL fL (8.7-11.7) Neut % (Auto) 75.3 % H % (39.3-74.2) Lymph % (Auto) 16.8 % % (15.0-45.0) [place] % (Auto) 6.2 % % (4.5-13.0) Eos % (Auto) 1.2 % % (0.6-7.6) Baso % (Auto) 0.3 % % (0.3-1.7) Nucleat RBC Rel Count 0.0 % % (0.0-0.2) Absolute Neuts (auto) 6.76 10^3/uL H 10^3/uL (1.70-6.50) Absolute Lymphs (auto) 1.51 10^3/uL 10^3/uL (1.00-3.00) Absolute Monos (auto) 0.56 10^3/uL 10^3/uL (0.30-0.80) Absolute Eos (auto) 0.11 10^3/uL 10^3/uL (0.03-0.40) Absolute Basos (auto) 0.03 10^3/uL 10^3/uL (0.02-0.10) Absolute Nucleated RBC 0.00 10^3/uL 10^3/uL (0-0.01) Immature Gran % 0.2 % % (0.0-1.1) Immature Gran # 0.02 10^3/uL 10^3/uL (0.00-0.10) PT INR APTT POC Sodium Sodium 142 mEq/L mEq/L (134-144) POC Potassium Potassium 4.3 mEq/L mEq/L (3.5-5.2) POC Chloride Chloride 104 mEq/L mEq/L (97-110) Carbon Dioxide 23 mEq/l mEq/l (22-31) Anion Gap 15 mEq/L mEq/L (8-16) POC BUN BUN 10 mg/dL mg/dL (7-23) Creatinine 0.8 mg/dL mg/dL (0.6-1.0) POC Creatinine Estimated GFR > 60 Glucose 101 mg/dL H mg/dL (70-100) POC Glucose Calcium 9.8 mg/dL mg/dL (8.5-10.4) Total Bilirubin 0.6 mg/dL mg/dL (0.1-1.4) Conjugated Bilirubin 0.4 mg/dL mg/dL (0.0-0.5) Unconjugated Bilirubin 0.2 mg/dL mg/dL (0.0-1.1) AST 21 IU/L IU/L (14-46) ALT 26 IU/L IU/L (9-52) Alkaline Phosphatase 83 IU/L IU/L (38-126) Total Protein 7.5 g/dL g/dL (6.3-8.2) Albumin 4.7 g/dL g/dL (3.5-5.0) Lipase 164.0 IU/L IU/L (23-300) Urine Color Urine Appearance Urine pH Ur Specific [place] Urine Protein Urine Ketones Urine Blood Urine Nitrate Urine Bilirubin Urine Urobilinogen Ur Leukocyte Esterase Urine RBC Urine WBC Ur Epithelial Cells Urine Glucose Medications Given: Discontinued Medications Diphenhydramine HCl (Benadryl Injection) 25 mg IVP EDNOW ONE Stop: 09/30/16 12:35 Last Admin: 09/30/16 13:06 Dose: 25 mg Sodium Chloride (Ns) 1,000 mls @ 0 mls/hr IV EDNOW ONE; Wide Open PRN Reason: Protocol Stop: 09/30/16 12:34 Last Admin: 09/30/16 12:45 Dose: 1,000 mls Pantoprazole Sodium 40 mg/ (Sodium Chloride) 100 mls @ 200 mls/hr IV EDNOW ONE Stop: 09/30/16 13:06 Last Admin: 09/30/16 13:05 Dose: 100 mls Lorazepam (Ativan Injection) 1 mg IVP EDNOW ONE Stop: 09/30/16 14:08 Last Admin: 09/30/16 14:14 Dose: 1 mg Metoclopramide HCl (Reglan Injection) 10 mg IVP EDNOW ONE Stop: 09/30/16 12:34 Last Admin: 09/30/16 13:06 Dose: 10 mg Morphine Sulfate (Morphine) 6 mg IVP EDNOW ONE Stop: 09/30/16 13:58 Last Admin: 09/30/16 14:16 Dose: 6 mg Ondansetron HCl (Zofran) 4 mg IVP EDNOW ONE Stop: 09/30/16 12:34 Last Admin: 09/30/16 13:06 Dose: 4 mg Point of Care Test Results: 09/30/16 12:38 POC Sodium 141 POC Potassium 3.9 POC Chloride 106 POC BUN 8 POC Creatinine 0.7 POC Glucose 101 H Departure - Departure Referrals: Patient,NotPresent [Primary Care Provider] - As per Instructions
[2016-09-30 12:41] LABS: % IMMATURE GRANULYOCYTES 0.2 % (0.0-1.1); ABSOLUTE IMMATURE GRANULOCYTES 0.02 10^3/uL (0.00-0.10); ADD DIFF? NO; ADD MORPH? NO; ADD SCAN? NO; ATYPICAL LYMPHOCYTE FLAG 0 (0-99); FRAGMENT RBC FLAG 0 (0-99); HEMATOCRIT 41.9 % (38.0-47.0); HEMOGLOBIN 14.1 g/dL (12.6-16.3); LEFT SHIFT FLG 0 (0-99); LIPEMIA HEMOLYSIS FLAG 80 (0-99); MEAN CELL HEMOGLOBIN 31.4 pg (27.9-34.1); MEAN CELL HEMOGLOBIN CONCENTR. 33.7 g/dL (32.4-36.7); MEAN CELL VOLUME 93.3 fL (81.5-99.8); MEAN PLATELET VOLUME 9.5 fL (8.7-11.7); PLATELET CLUMPS FLAG 0 (0-99); PLATELET COUNT 364 10^3/uL (150-400); RED BLOOD CELL COUNT 4.49 10^6/uL (4.18-5.33); RED CELL DISTRIBUTION WIDTH 12.7 % (11.5-15.2)
[2016-09-30 12:49] LABS: ALANINE AMINOTRANSFERASE 26 IU/L (9-52); ALBUMIN 4.7 g/dL (3.5-5.0); ALKALINE PHOSPHATASE 83 IU/L (38-126); ANION GAP 15 mEq/L (8-16); ASPARTATE AMINOTRANSFERASE 21 IU/L (14-46); BILIRUBIN,TOTAL 0.6 mg/dL (0.1-1.4); BILIRUBIN-CONJUGATED 0.4 mg/dL (0.0-0.5); BILIRUBIN-UNCONJUGATED 0.2 mg/dL (0.0-1.1); CALCIUM 9.8 mg/dL (8.5-10.4); CARBON DIOXIDE 23 mEq/l (22-31); CHLORIDE 104 mEq/L (97-110); CREATININE 0.8 mg/dL (0.6-1.0); GLOMERULAR FILTRATION RATE > 60; GLUCOSE 101 mg/dL (70-100); POTASSIUM 4.3 mEq/L (3.5-5.2); SODIUM 142 mEq/L (134-144); TOTAL PROTEIN 7.5 g/dL (6.3-8.2)
[2016-09-30 12:50] LABS: APTT 26.9 SEC (23.0-38.0); INR 0.89 (0.83-1.16); PROTIME(PATIENT) 11.9 SEC (12.0-15.0)
[2016-09-30] MEDS ORDERED: IOPAMIDOL (ISOVUE-300) 100 ML BTL ONE (12:52)
[2016-09-30] MEDS ORDERED: LORazepam 2 MG/ML INJ IVP ONE (14:07)
[2016-09-30 14:13] LABS: COLOR PALE YELLOW; LEUKOCYTE ESTERASE,URINE NEGATIVE (NEGATIVE); NITRITE,URINE NEGATIVE (NEGATIVE)
[2016-09-30 14:18] LABS: RBC,URINE NONE SEEN /hpf (0-3); WBC,URINE NONE SEEN /hpf (0-3)
[2016-09-30] MEDS ORDERED: ACETAMINOPHEN 325 MG TAB PO PRN (16:23)
[2016-09-30] MEDS ORDERED: ONDANSETRON 4 MG/2 ML VIAL IVP PRN (16:23)
[2016-09-30] MEDS ORDERED: PROMETHAZINE HCL 25 MG/ML INJ IVP PRN (16:23)
[2016-09-30] MEDS ORDERED: PROMETHAZINE HCL 25 MG TAB PO PRN (16:23)
[2016-09-30] MEDS ORDERED: ONDANSETRON DISINTEGRATING 4 MG TAB PO PRN (16:23)
[2016-09-30] MEDS ORDERED: PANTOPRAZOLE SODIUM 40 MG in NS 100 ML IV SCH (16:33)
[2016-09-30] MEDS ORDERED: hydrALAZINE 20 MG/ML VIAL IVP PRN (16:33)
[2016-09-30] MEDS ORDERED: THIAMINE HCL 500 MG in NS 100 ML IV ONE (16:34)
[2016-09-30] MEDS ORDERED: LORazepam 2 MG/ML INJ IVP PRN (16:34)
[2016-09-30 17:33] LABS: ETHANOL SERUM < 10 mg/dL (0-10); MAGNESIUM 1.7 mg/dL (1.6-2.3)
--- NOTE | 2016-09-30 17:36 | GHP ---
[f rep st] HISTORY AND PHYSICAL DATE OF ADMISSION: 09/30/2016 CHIEF COMPLAINT: Nausea, vomiting, epigastric pain. HISTORY OF PRESENT ILLNESS: Ms. 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 She was admitted to the hospital last week with similar symptoms and was treated with supportive care. She also had some chest pain and bradycardia during that admission. She had negative troponins and a nonischemic EKG. An outpatient stress test was recommended as she was unable to walk on the treadmill prior to discharge due to a recent ankle sprain. Since her hospital discharge on September 23, she has developed worsening epigastric pain with frequent nausea, vomiting, and also reports watery diarrhea multiple times a day. She denies hematemesis, coffee-ground emesis, hematochezia, or melenic stools. She denies recent weight loss. She does endorse binge alcohol use. When I asked her how much she drinks she said however much it takes until she passes out. Further history from her daughter is that she is a hard alcohol drinker; frequently drinks Tequila straight from the bottle. This has caused a fair amount of strife with their relationship. The daughter recently moved out of her mother's house and her daughter feels her mother is in a downward spiral with respect to her drinking. Daughter reports she does have a history of alcohol withdrawal and delirium tremors but no known seizures to her knowledge. At this time, the patient has elevated blood pressure. Vital signs are otherwise stable. She denies chest pain or shortness of breath. She complains of epigastric pain which is sharp in nature. She has been afebrile. In the emergency department, abdominal CT was performed and showed gastric wall thickening along with moderate stool in the proximal colon. Given her refractory symptoms after receiving 4 mg of IV Zofran, 6 mg of IV morphine, 10 mg of IV Reglan, 1 mg of IV Ativan, and 25 mg of IV Benadryl, she is admitted to the hospital for further management. Most of the history is obtained from her daughter as she is heavily sedated after receiving the above medications. PAST MEDICAL HISTORY: 1. Alcohol abuse. 2. History of alcohol withdrawal. 3. Hypertension. 4. 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 PAST SURGICAL HISTORY: Cholecystectomy. FAMILY HISTORY: Her sister of heart failure. SOCIAL HISTORY: The patient lives alone in [place]. Her daughter recently moved out. She denies tobacco use. She does not use marijuana or other illicit drugs. She is a heavy episodic binge drinker. 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 MEDICATIONS: Please see [facility] for a complete medication list. ALLERGIES: No known drug allergies. REVIEW OF SYSTEMS: A 10-point review of systems was performed and is negative except as per HPI. OBJECTIVE: VITAL SIGNS: Temperature is 36.8, blood pressure 163/96, heart rate 67, respiratory rate 16, she is 98% on room air. GENERAL: The patient is awake , she is heavily sedated though does awaken to verbal stimuli. HEENT: Head is atraumatic, normocephalic. Pupils equal, round , react to light. Extraocular muscles intact. Oropharynx clear. Mucous members are moist. NECK: Supple. There is no JVD. HEART: Regular rate and rhythm without murmur. LUNGS: Clear to auscultation bilaterally. ABDOMEN: Soft. She has epigastric tenderness to palpation without rebound, rigidity, or guarding. Normoactive bowel sounds are present. EXTREMITIES: Without cyanosis , clubbing, or edema. NEUROLOGIC: Grossly nonfocal. LABORATORY DATA: CBC is normal. INR is 0.89. Basic metabolic panel is normal with normal electrolytes, creatinine of 0.8, glucose 101. LFTs are normal. Lipase is normal at 164. Urinalysis is negative. CT abdomen and pelvis in the emergency department shows mild gastric wall thickening suspicious for gastritis, moderate stool in the proximal colon, tiny hepatic and renal hypodensities too small to characterize, likely outside energy sales representatives of cysts. ASSESSMENT/PLAN: Ms. Izquierdo is a 55-year-old female with history of alcohol abuse, hypertension, and AV jennifer reentry tachycardia who was admitted to the hospital with nausea, vomiting, and epigastric pain. 1. Epigastric pain with refractory nausea and vomiting: I suspect she has alcohol-induced gastritis given her history of binge drinking and findings on her CT scan. She will be admitted to the medical-surgical unit, given a clear liquid diet for now. We will make her n.p.o. at midnight. I discussed the case with Dr. Raúl Daley who will plan to perform upper endoscopy in the morning. She will be treated with IV Protonix, antiemetics, and IV fluids for supportive care. 2. Hypertension: Given her difficulty with oral intake, we will plan to treat with IV hydralazine prn. She was recently taken off her Coreg due to bradycardia. There is no evidence of bradycardia on this admission. 3. Binge alcohol abuse: It sounds like the patient has been drinking more heavily and she does have a history of withdrawal but no known seizures. We will place her on CIWA protocol with p.r.n. benzodiazepine. I will give her a bag of thiamine. I will hold on oral vitamin replacement until she is taking p.o. better. Case Management consult is requested. 4. AV jennifer reentry tachycardia: This appears stable at this time, although I note she is off her beta kirk. We may need to reintroduce a lower dose of beta kirk should this recur. She apparently had bradycardia in the 40s during her prior hospitalization though per review of records, I see mostly the 50s and 60s. 5. DVT prophylaxis: We will defer pharmacologic prophylactic therapy given her high risk for bleeding with suspected alcohol-induced gastritis. SCDs ordered. 6. Code status: Patient is full code. 7. Disposition: Patient was admitted to observation status. If her condition is improved tomorrow, she can be a candidate for discharge. Otherwise, we will need to change her to inpatient. /[id number]/MODL MTDD
[2016-09-30] MEDS: PANTOPRAZOLE SODIUM 40 MG in NS 100 ML IV SCH (20:11)
[2016-09-30 20:18] LABS: PHENCYCLIDINE URINE BCH < 6 ng/ml (NEGATIVE); PHENCYCLIDINE URINE BCH NEGATIVE (NEGATIVE); TETRAHYDROCANNABINOL URINE < 5 ng/mL (NEGATIVE); TETRAHYDROCANNABINOL URINE NEGATIVE (NEGATIVE)
[2016-09-30] MEDS ORDERED: traZODone 100 MG TAB PO PRN (22:22)
[2016-09-30] MEDS ORDERED: traZODone 50 MG TAB PO PRN (23:24)
[2016-09-30] MEDS ORDERED: NS 1,000 ML IV SCH (23:30)
[2016-10-01] MEDS ORDERED: PNEUMOCOCCAL 0.5ML VACCINE VIAL IM ONE (00:17)
[2016-10-01 05:18] LABS: % IMMATURE GRANULYOCYTES 0.2 % (0.0-1.1); ABSOLUTE IMMATURE GRANULOCYTES 0.01 10^3/uL (0.00-0.10); ADD DIFF? NO; ADD MORPH? NO; ADD SCAN? NO; ATYPICAL LYMPHOCYTE FLAG 0 (0-99); FRAGMENT RBC FLAG 0 (0-99); HEMATOCRIT 31.8 % (38.0-47.0); HEMOGLOBIN 10.6 g/dL (12.6-16.3); LEFT SHIFT FLG 0 (0-99); LIPEMIA HEMOLYSIS FLAG 80 (0-99); MEAN CELL HEMOGLOBIN 31.5 pg (27.9-34.1); MEAN CELL HEMOGLOBIN CONCENTR. 33.3 g/dL (32.4-36.7); MEAN CELL VOLUME 94.6 fL (81.5-99.8); MEAN PLATELET VOLUME 9.5 fL (8.7-11.7); PLATELET CLUMPS FLAG 0 (0-99); PLATELET COUNT 261 10^3/uL (150-400); RED BLOOD CELL COUNT 3.36 10^6/uL (4.18-5.33); RED CELL DISTRIBUTION WIDTH 12.9 % (11.5-15.2)
[2016-10-01 05:35] LABS: ANION GAP 6 mEq/L (8-16); CALCIUM 8.8 mg/dL (8.5-10.4); CARBON DIOXIDE 25 mEq/l (22-31); CHLORIDE 106 mEq/L (97-110); CREATININE 0.7 mg/dL (0.6-1.0); GLOMERULAR FILTRATION RATE > 60; GLUCOSE 75 mg/dL (70-100); MAGNESIUM 1.8 mg/dL (1.6-2.3); POTASSIUM 3.8 mEq/L (3.5-5.2); SODIUM 137 mEq/L (134-144)
[2016-10-01] MEDS: PANTOPRAZOLE SODIUM 40 MG in NS 100 ML IV SCH ×2 (08:03→20:56)
[2016-10-01] MEDS ORDERED: LR 1,000 ML IV ONE (09:26)
[2016-10-01] MEDS ORDERED: MIDAZOLAM 2 MG/2 ML VIAL IVP ONE (09:33)
--- NOTE | 2016-10-01 09:33 | PDANEPAE ---
ANE History of Present Illness abdominal pain. gastritis ANE Past Medical History - Cardiovascular History Hx Hypertension: Yes - Pulmonary History Hx Oxygen in Use at Home: No Hx Sleep Apnea: Yes Sleep Apnea Screening Result - Last Documented: Positive - Endocrine History Hx Diabetes: No - Chronic Pain History Chronic Pain: No ANE Review of Systems Review of systems is: negative - Exercise capacity METS (RN): 4 METS ANE Patient History - Allergies Allergies/Adverse Reactions: No Known Allergies Allergy (Unverified 09/21/16 12:31) - Home Medications Home Medications: traZODone [traZODONE 50MG (*)] 50 mg PO HS PRN 09/21/16 [Last Taken 09/29/16] Promethazine HCl [Phenergan 25mg (*)] 25 mg PO Q8 PRN 09/30/16 [Last Taken Unknown] Sucralfate [Carafate Suspension] 5 - 10 ml PO TID PRN 09/30/16 [Last Taken Unknown] - NPO status NPO Since - Liquids (Date): 09/30/16 NPO Since - Liquids (Time): 00:00 NPO Since - Solids (Date): 09/29/16 NPO Since - Solids (Time): 00:00 - Anes Hx Anes Hx: no prior problems - Smoking Hx Smoking Status: Former smoker ANE Labs/Vital Signs - Labs Result Diagrams: 10/01/16 04:32 10/01/16 04:32 - Vital Signs Blood Pressure: 118/64 Heart Rate: 57 Respiratory Rate: 18 O2 Sat (%): 93 Height: 182.88 cm Weight: 91.1 kg ANE Physical Exam - Airway Neck exam: FROM Mallampati Score: Class 1 Mouth exam: normal dental/mouth exam - Pulmonary Pulmonary: no respiratory distress - Cardiovascular Cardiovascular: regular rate and rhythym - ASA Status ASA Status: II ANE Anesthesia Plan Anesthesia Plan: GA with mask, MAC
[2016-10-01] MEDS ORDERED: PROPOFOL/EMULSION 500 MG/50 ML BOTTLE IV ONE (09:37)
[2016-10-01] MEDS ORDERED: PROPOFOL 200 MG/20 ML VIAL ONE (09:41)
[2016-10-01] MEDS ORDERED: ACETAMINOPHEN 500 MG TAB PO PRN (10:07)
[2016-10-01] MEDS ORDERED: NALOXONE HCL 0.4 MG/ML INJ IVP PRN (10:07)
[2016-10-01] MEDS ORDERED: OXYCODONE/APAP 5/325 TAB PO PRN (10:07)
[2016-10-01] MEDS ORDERED: fentaNYL 100 MCG/2 ML INJ IVP PRN (10:07)
--- NOTE | 2016-10-01 10:13 | POSTOPPROG ---
Post Op Note Date of Operation: 10/01/16 Surgeon: Raúl Daley Mineral Technologist: None. Anesthesiologist: Dr. Schafer Anesthesia: Other (Specify) (MAC) Pre-op Diagnosis: Epigastric pain, nausea and vomiting. Post-op Diagnosis: 1. Same. 2. Two antral ulcers. Indication: Epigastric pain, nausea and vomiting. Procedure: EGD with gastric and duodenal biopsies. Findings: Two medium size antral ulcers. Inf/Abcess present in the surg proc area at time of surgery?: No Depth: Superfical (Skin SQ) EBL: Minimal Total fluids administered: None Complications: None. Specimen(s): 1. Duodenal biopsies to r/o celiac disease. 2. Gastric biopsies to r/o H. pylori gastritis.
--- NOTE | 2016-10-01 10:16 | POSTANESTH ---
Post Anesthetic Evaluation Cardiovascular Status: Normal, Stable Respiratory Status: Normal, Stable Level of Consciousness/Mental Status: Can Participate in Eval Pain Control: Adequate, Prn Tx Ordered Nausea/Vomiting Control: Adequate, Prn Tx Ordered Complications Possibly Related to Anesthesia: None Noted
[2016-10-01] MEDS ORDERED: GOLYTELY 4000 ML BTL PO ONE (10:23)
[2016-10-01] MEDS ORDERED: ACETAMINOPHEN 325 MG TAB PO PRN (11:05)
--- NOTE | 2016-10-01 15:02 | HOSPPROG ---
Hospitalist Progress Note Assessment/Plan: Patient is a 55-year-old female with history of binge alcohol abuse and AV jennifer reentry tachycardia. She presented to the emergency room with nausea vomiting and epigastric pain. Since her discharge on September 23 she has developed worsening epigastric pain frequent nausea. She frequently drinks Tequila. She admits to binge drinking. She does not feel this is her problem. In the emergency department she had a CT of the abdomen. This showed gastric wall thickening along with moderate stool in the proximal colon. Today she is status post an EGD. It was noted that she has to antral ulcers. Biopsies were obtained to rule out H pylori and celiac disease. The plan is for her to get a colonoscopy tomorrow morning. Today is my 1st encounter with the patient. Chart reviewed. * epigastric pain with refractory nausea and vomiting Status post EGD which noted to antral ulcers Continue PPI therapy Continue supportive care with IV fluids and antiemetics Getting a colonoscopy tomorrow morning. Doing the prep when I evaluated her *Hypertension bp stable * alcohol use with Binge drinking No signs or symptoms of withdrawal *AV jennifer reentry tachycardia Status post ablation in 2014 Has episodes of bradycardia and her Coreg was stopped on her last admission Of note she had an episode of chest pain on her last admission the recommendation was to get further evaluation *anemia: Will follow * DVT prophylaxis: No low-molecular weight heparin at this time. She is getting further evaluation with a colonoscopy tomorrow morning. She is frequently ambulating in the room *Plan: The patient require another midnight stay for further evaluation. She will be getting a colonoscopy in the morning Subjective: Roopa has no complaints of pain. Objective: Vital Signs Temp Pulse Resp BP Pulse Ox 36.5 C 55 L 16 124/83 H 97 10/01/16 14:03 10/01/16 14:03 10/01/16 14:03 10/01/16 14:03 10/01/16 14:03 Laboratory Results 10/01/16 04:32 10/01/16 04:32 09/30/16 10/01/16 10/02/16 05:59 05:59 05:59 Intake Total 1655 550 Balance 1655 550 PT 11.9 SEC (12.0-15.0) L 09/30/16 11:55 INR 0.89 (0.83-1.16) 09/30/16 11:55 - Physical Exam Constitutional: no apparent distress, appears nourished, not in pain Eyes: PERRL Ears, Nose, Mouth, Throat: hearing normal Cardiovascular: regular rate and rhythym, bradycardia Respiratory: no respiratory distress Gastrointestinal: normoactive bowel sounds, soft, non-tender abdomen Skin: warm Musculoskeletal: full muscle strength Neurologic: AAOx3 Psychiatric: interacting appropriately, not anxious ICD10 Worksheet Patient Problems: Problems Problem Status Onset Upper abdominal pain Acute Vomiting Acute Nausea Acute
--- NOTE | 2016-10-01 15:49 | GCON ---
[f rep st] CONSULTATION GASTROINTESTINAL CONSULTATION DATE OF CONSULTATION: 10/01/2016 REASON FOR CONSULTATION: Epigastric abdominal pain, nausea, vomiting, and chronic diarrhea. HISTORY OF PRESENT ILLNESS: The patient is a 55-year-old female with a known history of binge alcohol drinking, who states that she has been drinking 3-4 times per year associated with stressor. Last episode was 3 weeks ago, at which time, she drank several bottles of wine. She has had no episodes of alcohol withdrawal syndrome, to her knowledge. She states that since September 23 she has had recurrent severe epigastric abdominal pain without radiation associated with nausea and vomiting and feels that her stomach does not empty well. She also reports a greater than 1-year history of frequent watery bowel movements and rectal urgency. She denies any blood in her stool or black tarry stools or coffee-grounds emesis. She has denied any weight loss. She has a remote history of an adenomatous colon polyp removed 7 years ago without followup. She has never had an EGD performed in the past. She was evaluated in the emergency room yesterday, and CT scan of the abdomen showed thickening of the gastric wall, as well as moderate stool in the proximal colon. I was asked to see this patient by Dr. Nicolette Vora for evaluation and treatment of her symptoms of epigastric abdominal pain, nausea, and vomiting. MEDICATIONS: Prior to admission included trazodone 50 mg p.o. q.h.s. p.r.n. insomnia; celecoxib 100 mg p.o. b.i.d. p.r.n.; Zofran 4 mg p.r.n. q.4 hours for nausea and vomiting; Protonix 40 mg p.o. daily; amlodipine 2.5 mg p.o. daily; Phenergan 25 mg p.o. q.8 hours p.r.n. nausea; and sucralfate suspension t.i.d. p.r.n. abdominal pain. ALLERGIES: She has no known drug allergies. PAST MEDICAL HISTORY: Significant for alcohol abuse with binge drinking, hypertension, story of AV jennifer reentry tachycardia treated with ablation in 2014, and personal history of colon polyps 7 years ago without follow-up colonoscopy. PAST SURGICAL HISTORY: Significant for cholecystectomy. FAMILY HISTORY: Positive for heart disease with congestive heart failure in her sister. SOCIAL HISTORY: She lives alone in [place]. Her daughter lives in the area. 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 She does not smoke tobacco. She is a heavy binge drinker 3-4 times per year. REVIEW OF SYSTEMS: Otherwise negative for comprehensive review of systems. PHYSICAL EXAMINATION: VITAL SIGNS: On my examination today, her temperature was 97.9 Fahrenheit, and her pulse was 57 and regular. Blood pressure 118/64, respiratory rate was 18, O2 saturation 93% on room air. GENERAL: This is a well-developed, well-nourished female, in bed, in no apparent distress. INTEGUMENT: Clear. HEENT: Head atraumatic, normocephalic. Pupils equally round and reactive to light. EOMs intact. Sclerae are not icteric. Nares patent. Mucous membranes moist. Dentition good. NECK: Supple. Trachea midline. RESPIRATORY: Lungs clear to percussion auscultation. CARDIOVASCULAR : Regular rhythm and rate. Normal S1, S2 without murmur. Peripheral pulses strong bilaterally. No pedal edema. ABDOMEN/GI: Positive bowel sounds. No liver or spleen tip palpable. No masses or tenderness noted. No fluid wave noted or shifting dullness. EXTREMITIES: Without deformities. NEURO: Patient is alert and oriented x3. No focal neurologic deficits. LABORATORY DATA: White count 5.91. Hemoglobin on admission 14.1, now 10.6 with hydration. Platelets 261,000. Pro time 11.9, INR 0.89, PTT 26.9. Electrolytes normal. LFTs normal. Beta HCG negative. Lipase 164. Urinalysis negative. IMAGING DATA: Abdominal CT scan on admission showed mild gastric wall thickening suspicious for gastritis, moderate stool in the proximal colon, and tiny hepatic and renal hypodensities too small to characterize consistent with cysts. IMPRESSION: 1. Subacute onset of nausea, vomiting, epigastric abdominal pain, and early satiety of unclear etiology in a patient with history of binge drinking, albeit she denies any recent binge drinking; rule out alcoholic gastritis. Rule out peptic ulcer disease. Rule out gastroparesis. Rule out celiac disease. 2. Chronic diarrhea. Rule out celiac disease or inflammatory bowel disease. 3. History of binge drinking without evidence of alcoholic hepatitis on LFTs. 4. Atrioventricular jennifer reentry tachycardia by history without recurrence after ablation. 5. Personal history of adenomatous colon polyp without followup. RECOMMENDATIONS: 1. Esophagogastroduodenoscopy today. Will do gastric small bowel biopsies to rule out H pylori gastritis and celiac disease. 2. Will perform colonoscopy during this admission to rule out colitis as an etiology of her diarrhea, as well as to rule out recurrent colon polyps. 3. Will follow with you. /[id number]/MODL MTDD
--- NOTE | 2016-10-01 18:39 | GPN ---
[f rep st] PROCEDURE NOTE DATE OF PROCEDURE: 10/01/2016 PROCEDURE PERFORMED: Esophagogastroduodenoscopy with biopsies. PREOPERATIVE DIAGNOSIS: Epigastric abdominal pain, nausea, vomiting, and chronic diarrhea, rule out peptic ulcer disease, rule out H pylori gastritis, rule out celiac disease. POSTOPERATIVE DIAGNOSES: 1. Two moderate-size antral ulcerations, random gastric biopsies obtained to rule out H pylori ju ritis. 2. Normal duodenum, biopsied to rule out celiac disease. CLINICAL HISTORY/INDICATIONS: The patient is a 55-year-old female who has a history of chronic diar elia with 4-5 loose bowel movements with rectal urgency daily over the last year. She has had no as sociated weight loss. She has had a 1-week history of recurrent epigastric abdominal pain without r adiation associated with nausea and vomiting, and early satiety. She is set up for esophagogastrodu odenoscopy to rule out peptic ulcer disease, alcoholic gastritis, or celiac disease as an etiology o f her symptoms. She does have a remote history of colonoscopy 7 years ago at which time adenomatous polyps were removed. She has had no followup colonoscopy thereafter. PERMIT: The patient was informed of indication for procedure. Risks and benefits of procedure were outlined by me. Informed consent was obtained. PREOPERATIVE MEDICATIONS: Per Dr. Schafer ([facility] [place]). PROCEDURE: GIF-XQ 180 video endoscope was inserted into the oropharynx and passed to the proximal e sophagus under direct visualization. Esophageal mucosa appeared normal. Gastroesophageal junction was located at 39 cm from the incisors. Scope was advanced into the stomach. Cardia, fundus, body, and antrum of the stomach showed some mild erythema without granularity or erosions. There were 2 ulcerations in the antrum, one measuring 2 cm x 1 cm, and the lesser ulcer measuring 1.5 cm x 1 cm. There were no stigmata of bleed. The ulcers were clean-based and looked benign in nature. Scope w as entered in the duodenum,. Duodenal bulb and sweep was normal to the 3rd portion of the duodenum. Random duodenal biopsies were obtained and placed in formalin to rule out celiac disease. Scope w as withdrawn in the stomach. Random gastric biopsies in the antrum and proximal stomach were obtain ed and placed in formalin to rule out H pylori gastritis. Scope was slowly withdrawn. The patient tolerated the procedure well and was sent to recovery room in satisfactory condition. IMPRESSION: 1. Epigastric abdominal pain, nausea, and vomiting, likely related to medium size antral ulceration s. 2. Gastric biopsies to rule out recurrent H pylori gastritis. 3. Small bowel biopsies obtained to rule out celiac disease. RECOMMENDATIONS: 1. Clear liquid diet. 2. Colyte prep. 3. Would proceed with total colonoscopy tomorrow to rule out inflammatory bowel disease as an etiol ogy for the patient's chronic diarrhea, as well as rule out recurrent colon polyps. /[id number]/MODL
[2016-10-01] MEDS ORDERED: HYDROmorphONE/DILAUDID 2 MG TAB PO PRN (18:54)
[2016-10-01] MEDS: HYDROmorphONE/DILAUDID 1 MG/ML SYR IVP PRN ×2 (19:54→22:11)
[2016-10-02] MEDS ORDERED: MAGNESIUM CITRATE 300 ML BOTTLE PO ONE (02:00)
[2016-10-02] MEDS: HYDROmorphONE/DILAUDID 1 MG/ML SYR IVP PRN ×2 (02:14→09:13)
[2016-10-02 05:01] LABS: % IMMATURE GRANULYOCYTES 0.3 % (0.0-1.1); ABSOLUTE IMMATURE GRANULOCYTES 0.02 10^3/uL (0.00-0.10); ADD DIFF? NO; ADD MORPH? NO; ADD SCAN? NO; ATYPICAL LYMPHOCYTE FLAG 0 (0-99); FRAGMENT RBC FLAG 0 (0-99); HEMATOCRIT 36.7 % (38.0-47.0); HEMOGLOBIN 12.2 g/dL (12.6-16.3); LEFT SHIFT FLG 0 (0-99); LIPEMIA HEMOLYSIS FLAG 80 (0-99); MEAN CELL HEMOGLOBIN 31.4 pg (27.9-34.1); MEAN CELL HEMOGLOBIN CONCENTR. 33.2 g/dL (32.4-36.7); MEAN CELL VOLUME 94.6 fL (81.5-99.8); MEAN PLATELET VOLUME 9.2 fL (8.7-11.7); PLATELET CLUMPS FLAG 0 (0-99); PLATELET COUNT 289 10^3/uL (150-400); RED BLOOD CELL COUNT 3.88 10^6/uL (4.18-5.33); RED CELL DISTRIBUTION WIDTH 12.7 % (11.5-15.2)
[2016-10-02 05:17] LABS: ANION GAP 12 mEq/L (8-16); CALCIUM 8.7 mg/dL (8.5-10.4); CARBON DIOXIDE 21 mEq/l (22-31); CHLORIDE 104 mEq/L (97-110); CREATININE 0.6 mg/dL (0.6-1.0); GLOMERULAR FILTRATION RATE > 60; GLUCOSE 90 mg/dL (70-100); MAGNESIUM 1.7 mg/dL (1.6-2.3); POTASSIUM 3.4 mEq/L (3.5-5.2); SODIUM 137 mEq/L (134-144)
[2016-10-02] MEDS: PANTOPRAZOLE SODIUM 40 MG in NS 100 ML IV SCH (07:43)
[2016-10-02] MEDS ORDERED: PROTOCOL POTASSIUM 1 DOSE MISC PRN (07:53)
[2016-10-02] MEDS ORDERED: POTASSIUM CL 10 MEQ TAB PO ONE ×2 (08:17→12:45)
--- NOTE | 2016-10-02 09:32 | PDANEPAE ---
ANE History of Present Illness here for colonoscopy ANE Past Medical History - Cardiovascular History Hx Hypertension: Yes Hx Arrhythmias: Yes Hx Chest Pain: No Hx Coronary Artery / Peripheral Vascular Disease: No Hx CHF / Valvular Disease: No Hx Palpitations: Yes - Pulmonary History Hx COPD: No Hx Asthma/Reactive Airway Disease: No Hx Recent Upper Respiratory Infection: No Hx Oxygen in Use at Home: No Hx Sleep Apnea: No Sleep Apnea Screening Result - Last Documented: Positive - Endocrine History Hx Diabetes: No Hypothyroid: No Hyperthyroid: No - Renal History Hx Renal Disorders: No - Liver History Hx Hepatic Disorders: No - Neurological & Psychiatric Hx Hx Neurological and Psychiatric Disorders: No - Cancer History Hx Cancer: No - Congenital Disorder History Hx Congenital Disorders: No - Chronic Pain History Chronic Pain: No ANE Review of Systems Review of systems is: negative - Exercise capacity Exercise capacity: >=4 METS METS (RN): 4 METS ANE Patient History - Allergies Allergies/Adverse Reactions: No Known Allergies Allergy (Unverified 09/21/16 12:31) - Home Medications Home medications: home medication list seen and reviewed Home Medications: traZODone [traZODONE 50MG (*)] 50 mg PO HS PRN 09/21/16 [Last Taken 09/29/16] Promethazine HCl [Phenergan 25mg (*)] 25 mg PO Q8 PRN 09/30/16 [Last Taken Unknown] Sucralfate [Carafate Suspension] 5 - 10 ml PO TID PRN 09/30/16 [Last Taken Unknown] - NPO status NPO Status: no food or drink >8 hours NPO Since - Liquids (Date): 10/02/16 NPO Since - Liquids (Time): 00:00 NPO Since - Solids (Date): 10/02/16 NPO Since - Solids (Time): 00:00 - Anes Hx Anes Hx: no prior problems - Smoking Hx Smoking Status: Former smoker ANE Labs/Vital Signs - Labs Result Diagrams: 10/02/16 04:45 10/02/16 04:45 - Vital Signs Blood Pressure: 134/86 Heart Rate: 62 Respiratory Rate: 14 O2 Sat (%): 94 Height: 182.88 cm Weight: 91.1 kg ANE Physical Exam - Airway Neck exam: FROM Mallampati Score: Class 1 Mouth exam: normal dental/mouth exam - Pulmonary Pulmonary: no respiratory distress - Cardiovascular Cardiovascular: regular rate and rhythym - ASA Status ASA Status: II ANE Anesthesia Plan Anesthesia Plan: GA with mask
[2016-10-02] MEDS ORDERED: PROPOFOL/EMULSION 500 MG/50 ML BOTTLE IV ONE (09:36)
--- NOTE | 2016-10-02 09:40 | PDGENHP ---
History & Physical Chief Complaint: diarrhea History of Present Illness: chronic diarrhea Pertinent Past, Social, Family History: binge alcohol, fhx cc grandparent > 90 Relevant Physical Exam: +bs, soft epi tenderness, cta s1 s2 rrr Cardiorespiratory Assessment: cta s1s2 rrr
--- NOTE | 2016-10-02 10:01 | POSTOPPROG ---
Post Op Note Date of Operation: 10/02/16 Surgeon: Maximiliano Krishnamurthy Anesthesiologist: lore Anesthesia: Other (Specify) (iv general) Pre-op Diagnosis: diarrhea, r/o colitis Post-op Diagnosis: nml colon Indication: diarrhea Procedure: colon and bx Findings: nml ti nml colon Inf/Abcess present in the surg proc area at time of surgery?: No EBL: Minimal (few ml) Total fluids administered: 250 LR Complications: none immediate
--- NOTE | 2016-10-02 13:30 | HOSPPROG ---
Hospitalist Progress Note Assessment/Plan: Patient is a 55-year-old female with history of binge alcohol abuse and AV jennifer reentry tachycardia. She presented to the emergency room with nausea vomiting and epigastric pain. Since her discharge on September 23 she has developed worsening epigastric pain frequent nausea. She frequently drinks Tequila. She admits to binge drinking. She does not feel this is her problem. In the emergency department she had a CT of the abdomen. This showed gastric wall thickening along with moderate stool in the proximal colon. 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 Objective: Vital Signs Temp Pulse Resp BP Pulse Ox 36.7 C 55 L 14 148/97 H 99 10/02/16 10:30 10/02/16 12:00 10/02/16 12:00 10/02/16 12:00 10/02/16 12:00 Laboratory Results 10/02/16 04:45 10/02/16 04:45 10/01/16 10/02/16 10/03/16 05:59 05:59 05:59 Intake Total 1655 1989 300 Output Total 0 Balance 1655 1989 300 PT 11.9 SEC (12.0-15.0) L 09/30/16 11:55 INR 0.89 (0.83-1.16) 09/30/16 11:55 - Physical Exam Constitutional: no apparent distress, appears nourished, not in pain Eyes: PERRL Ears, Nose, Mouth, Throat: hearing normal Respiratory: no respiratory distress Skin: warm Musculoskeletal: full muscle strength Neurologic: AAOx3 Psychiatric: interacting appropriately, not anxious ICD10 Worksheet Patient Problems: Problems Problem Status Onset Upper abdominal pain Acute Vomiting Acute Nausea Acute
--- NOTE | 2016-10-02 14:53 | GPN ---
[f rep st] PROCEDURE NOTE PROCEDURE PERFORMED: Colonoscopy and biopsy. INDICATION: Chronic diarrhea, status post cholecystectomy. PREPROCEDURE DIAGNOSIS: Rule out colitis. POSTPROCEDURE DIAGNOSIS: 1. Normal colon without evidence of colitis. 2. Normal terminal ileum. INFORMED CONSENT: I discussed with the patient regarding the procedure, alternatives, benefits, and risks including bleeding, perforation, infection, risk of medication. Informed consent was signed and witnessed. COMPLICATIONS: None immediate. MEDICATIONS: IV general per Dr. Hernandez. DESCRIPTION OF PROCEDURE: After adequate sedation, the patient remained in the left lateral decubit us position and I performed a visual and digital anorectal examination. The video colonoscope was t hen inserted via the anus and advanced under visualization to the terminal ilium. I advanced approx imately 15 cm to the terminal ilium. The prep was excellent. The terminal ileum was normal. The c olon was normal without evidence of colitis, polyps, masses or diverticulosis. Random biopsies were obtained from the entire colon for evaluation of microscopic colitis. The endoscope was completely withdrawn, confirming the above findings. The patient tolerated the procedure well and transferred to the recovery room in satisfactory condit ion. IMPRESSION: 1. Normal colonoscopy to 15 to 20 cm to the terminal ilium including retroflexed examination in the rectum. 2. Status post random biopsies for microscopic colitis. RECOMMENDATIONS: 1. Return to hospital [facility]. 2. Advance diet to previous. 3. Possible discharge as per hospitalist. 4. Followup biopsies for microscopic colitis and celiac sprue. 5. Repeat colonoscopy in 10-years for routine screening. Thank you for allowing me to participate in the patient's healthcare. Do not hesitate to call with any questions. . /[id number]/MODL
[2016-10-02 15:35] VITALS: BP 148/87; PULSE 66; RESP 16; TEMP 97.8; O2SAT 98
--- NOTE | 2016-10-02 17:13 | GDS ---
[f rep st] DISCHARGE SUMMARY DISCHARGE DIAGNOSES: 1. Epigastric pain secondary to antral ulcers. 2. Hypertension. 3. Alcohol use with binge drinking. 4. AV jennifer reentry tachycardia, status post ablation with history of bradycardia. 5. Anemia. CONSULTATIONS: During her stay, Dr. Raúl Daley. Briefly, Roopa Izquierdo is a 55-year-old female with a history of binge alcohol use and AV jennifer reentry tachycardia. She presented to the emergency room with nausea, vomiting and epigastric pain. She was admitted last week with similar symptoms and was treated with supportive care. Since her hospital discharge on September 23, she had worsening epigastric pain and frequent nausea and vomiting. She had a CT performed that showed gastric wall thickening along with moderate stool in the proximal colon. She was subsequently seen by Dr. Daley and had an EGD performed which showed antral ulcers. Multiple biopsies were taken to rule out H pylori as well as celiac disease. Today, she had a colonoscopy. Reviewed the results of this with Dr. Krishnamurthy. This is stable. She will be discharged home on a PPI and further followup with them in the outpatient setting. HOSPITAL COURSE: 1. Epigastric pain. This is secondary to antral ulcer. She will be on a PPI for a total of 8 weeks. 2. Hypertension. Blood pressure is 148/97. 3. Alcohol use with binge drinking. She has had no signs or symptoms of withdrawal. She is very motivated not to drink in the setting of ulcers. 4. AV jennifer reentry tachycardia. This is status post ablation. She had episodes of bradycardia, and her Coreg was stopped on her last admission. 5. Anemia, stable. PENDING LABS: Biopsies from her procedures. CONDITION AT DISCHARGE: Stable. Blood pressure is 120/67, heart rate 52, respiratory rate is 14, O2 saturation on room air 95%, temperature is 36.9 Celsius. MEDICATIONS AT DISCHARGE: Please see the EMR. DISCHARGE INSTRUCTIONS: 1. To follow up with her biopsies. 2. To avoid all alcohol. /[id number]/MODL MTDD
== END 2016-10-02 16:01 | disposition home or self-care (01) ==
LOC: EDUNIT# → INTOOBSV 14:10 → F3E 16:29
PROVIDERS: ADMIT Hospitalist; ATTEND Hospitalist
DX: K25.9 Gastric ulcer, unspecified as acute or chronic, without hemorrhage or perforation (principal); F10.10 Alcohol abuse, uncomplicated; I10 Essential (primary) hypertension; Z86.010 Personal history of colon polyps; R00.0 Tachycardia, unspecified; D64.9 Anemia, unspecified
CPT/HCPCS: 43239; 45380; 74177; 90471; 96374; 96375; 97161; 97165; 99285; G0378; 80307; 82947-QW; G0009; G0480; J1170; J1200; J2060; J2250; J2405; J2704; J2765; J3411; Q9967